=== PATIENT | female | born 1945 ===

== ENCOUNTER 2017-04-01 11:36 | Outpatient (CLI) | payer OTHER | END 2017-04-01 12:14 | disposition home or self-care (01) | LOC: TOM 11:36 | DX: K57.30 Diverticulosis of large intestine without perforation or abscess without bleeding (principal); Z12.11 Encounter for screening for malignant neoplasm of colon ==

== ENCOUNTER 2017-05-27 09:05 | Outpatient (CLI) | payer OTHER | END 2017-05-27 17:00 | disposition home or self-care (01) | LOC: SONOGRAMA 09:05 | DX: Z12.11 Encounter for screening for malignant neoplasm of colon (principal) ==

== ENCOUNTER → 2017-05-27 | Outpatient (CLI) | payer OTHER | END | disposition home or self-care (01) | LOC: LAB 08:27 | DX: Z12.11 Encounter for screening for malignant neoplasm of colon (principal) ==

== ENCOUNTER 2017-11-15 08:13 | Outpatient (CLI) | payer OTHER | END 2017-11-15 09:00 | disposition home or self-care (01) | LOC: NUCLEAR 08:13 | DX: R59.0 Localized enlarged lymph nodes (principal) | CPT/HCPCS: 78815; A9552 ==

== ENCOUNTER 2018-06-20 08:38 | Outpatient (CLI) | payer OTHER | END 2018-06-20 09:00 | disposition home or self-care (01) | LOC: NUCLEAR 08:38 | DX: C83.33 Diffuse large B-cell lymphoma, intra-abdominal lymph nodes (principal); Z08 Encounter for follow-up examination after completed treatment for malignant neoplasm | CPT/HCPCS: 78815; A9552 ==

== ENCOUNTER 2021-11-12 10:10 | Outpatient (CLI) | payer OTHER | END 2021-11-12 11:00 | disposition home or self-care (01) | LOC: ASH CLINIC 10:10 | DX: U07.1 COVID-19 (principal) ==

== ENCOUNTER 2023-12-17 10:37 | Outpatient (CLI) | payer OTHER | END 2023-12-17 10:38 | disposition home or self-care (01) | LOC: NUCLEAR 10:37 | PROVIDERS: ATTEND Internal Medicine | DX: G45.9 Transient cerebral ischemic attack, unspecified (principal); H81.4 Vertigo of central origin ==